=== PATIENT | female | born 1945 | race Caucasian/White ===

== ENCOUNTER 2018-05-05 06:33 | Inpatient (IN) | payer OTHER, MEDICARE ==
[2018-04-30 13:19] LABS: ANION GAP 4 (5-15); CALCIUM 9.7 mg/dL (8.4-11.0); CHLORIDE 102 mmol/L (98-107); GLUCOSE 147 mg/dL (70-99); POTASSIUM 4.5 mmol/L (3.5-5.1); SODIUM SERUM 135 mmol/L (136-145); UREA NITROGEN, BLOOD 13 mg/dL (8-21)
[2018-04-30 13:20] LABS: CREATININE 0.73 mg/dL (0.55-1.30)
[2018-04-30 13:21] LABS: ALANINE AMINOTRANSFERASE 26 U/L (12-78); ASPARTATE AMINOTRANSFERASE 18 U/L (10-37); TOTAL BILIRUBIN 0.3 mg/dL (0.0-1.0)
[2018-04-30 13:22] LABS: ALBUMIN 3.7 g/dL (3.4-4.8)
[2018-04-30 13:28] LABS: PROTHROMBIN TIME 9.9 SECS (9.5-12.5)
[2018-04-30 13:34] LABS: BILIRUBIN,URINE NEGATIVE (NEGATIVE); BLOOD, URINE NEGATIVE (NEGATIVE); CLARITY/URINE HAZY (CLEAR); COLOR,URINE YELLOW (YELLOW); GLUCOSE,URINE TRACE (NEGATIVE); KETONES,URINE NEGATIVE (NEGATIVE); PH,URINE 6.5 (5.0-8.0); PROTEIN URINE NEGATIVE (NEGATIVE)
[2018-04-30 13:35] LABS: LEUKOCYTE ESTERASE ,URINE 1+ (NEGATIVE); NITRITE, URINE POSITIVE (NEGATIVE); UROBILINOGEN,URINE 0.2 (0.2-1.0)
[2018-04-30 13:42] LABS: BACTERIA,URINE MODERATE /HPF (None Seen); RBC,URINE 0-3 /HPF (0-3)
[2018-04-30 13:43] LABS: MUCUS,URINE 1+ /LPF (None Seen)
[2018-04-30 13:48] LABS: BASOPHILS # (AUTO) 0.1 K/uL (0.0-0.2); BASOPHILS % (AUTO) 0.8 % (0.0-2.0); EOSINOPHILS # (AUTO) 0.1 K/uL (0.0-0.4); EOSINOPHILS % (AUTO) 1.4 % (0.0-4.0); HEMATOCRIT 39.8 % (36-48); LYMPHOCYTES # (AUTO) 2.1 K/uL (1.0-5.5); LYMPHOCYTES % (AUTO) 23.9 % (20.5-51.5); MEAN CORPUSCULAR HEMOGLOBIN 28 pg (27-31); MEAN CORPUSCULAR HGB CONC 33 % (32-36); MEAN CORPUSCULAR VOLUME 84 fL (79.0-98.0); MONOCYTES # (AUTO) 0.4 K/uL (0.0-1.0); MONOCYTES % (AUTO) 4.6 % (1.7-9.3); NEUTROPHILS # (AUTO) 6.1 K/uL (1.8-7.7); NEUTROPHILS % (AUTO) 69.3 % (40.0-70.0); PLATELET COUNT (AUTO) 344 K/uL (130-430); RED BLOOD CELL COUNT(AUTO) 4.72 MIL/uL (4.2-6.2); RED CELL DISTRIBUTION WIDTH 12.7 % (9.0-15.0); WHITE BLOOD COUNT (AUTO) 8.8 K/uL (4.8-10.8)
[~2018-05-05] VITALS: Ht 157.5 cm; Wt 92.5 kg
[2018-05-05] MEDS ORDERED: ACETAMINOPHEN 500 MG TABLET ONE (06:52)
[2018-05-05] MEDS ORDERED: GABAPENTIN 300 MG CAPSULE ONE (06:52)
[2018-05-05] MEDS ORDERED: CELECOXIB 200 MG CAPSULE ONE (06:52)
[2018-05-05] MEDS ORDERED: TRANEXAMIC ACID 650 MG TABLET ONE (06:53)
[2018-05-05] MEDS ORDERED: oxyCODONE HCL 10 MG TAB.ER.12H PO ONE ×2 (06:53→07:00)
[2018-05-05] MEDS ORDERED: NACL 0.9% 1,000 ML IV ONE (07:00)
[2018-05-05] MEDS ORDERED: GABAPENTIN 300 MG CAPSULE PO ONE (07:00)
[2018-05-05] MEDS ORDERED: CELECOXIB 200 MG CAPSULE PO ONE (07:00)
[2018-05-05] MEDS ORDERED: ACETAMINOPHEN 500 MG TABLET PO ONE (07:00)
[2018-05-05] MEDS ORDERED: TRANEXAMIC ACID 650 MG TABLET PO ONE (07:00)
[2018-05-05] MEDS ORDERED: CEFAZOLIN 2 GM IVPB PREMIX 50 ML IV ONE (07:00)
[2018-05-05] MEDS ORDERED: POLYMYXIN 500,000/BACIT.10,000 UNITS in NS IRR 1 L IR ONE (07:59)
[2018-05-05] MEDS ORDERED: ROPIVACAINE HCL/PF 0.2% (NAROPIN) 200 ML PLAST..BAG EP ONE (08:11)
[2018-05-05] MEDS ORDERED: LR 1,000 ML IV.SOLN IV ONE (08:11)
[2018-05-05] MEDS ORDERED: PROPOFOL 200MG/ 20ML VIAL (DIPRIVAN) IV ONE (08:11)
[2018-05-05] MEDS ORDERED: TRANEXAMIC ACID 1,000 MG/10 ML VIAL IV ONE (08:11)
[2018-05-05] MEDS ORDERED: MIDAZOLAM HCL 5 MG/5 ML VIAL IVP ONE (08:11)
[2018-05-05] MEDS ORDERED: METH500T PO (08:21)
[2018-05-05] MEDS ORDERED: SITA100T11 PO (08:21)
[2018-05-05] MEDS ORDERED: GLIP5TAB13 PO (08:21)
[2018-05-05] MEDS ORDERED: VALS160T2 PO (08:21)
[2018-05-05] MEDS ORDERED: LEVO137T2 PO (08:21)
[2018-05-05] MEDS ORDERED: LIRA0.6P SQ (08:21)
[2018-05-05] MEDS ORDERED: GLIP10TA11 PO (08:21)
[2018-05-05] MEDS ORDERED: TRAZ-123 PO (08:21)
[2018-05-05] MEDS ORDERED: ROPIVACAINE 0.2% 100 ML INJ SCH (08:42)
[2018-05-05] MEDS ORDERED: KETOROLAC TROMETHAMINE 30 MG VIAL IVP PRN (08:45)
[2018-05-05] MEDS ORDERED: OXYCODONE/ACETAMINOPHEN *10*mg/325 mg TABLET PO PRN (08:45)
[2018-05-05] MEDS ORDERED: DIPHENHYDRAMINE INJ 50 MG/ML VIAL IVP PRN (08:45)
[2018-05-05] MEDS ORDERED: fentaNYL CITRATE/PF 100 MCG/2 ML AMP IVP PRN ×2 (08:45)
[2018-05-05] MEDS ORDERED: ONDANSETRON HCL 4 MG/2 ML VIAL IVP PRN ×3 (08:45→10:30)
[2018-05-05] MEDS ORDERED: NALBUPHINE HCL 10 MG/ML AMP IVP PRN (08:45)
[2018-05-05] MEDS ORDERED: ROPIVACAINE 0.2% 550 ML INJ ONE (10:20)
[2018-05-05] MEDS ORDERED: LR 1,000 ML IV SCH (10:20)
[2018-05-05] MEDS ORDERED: PROMETHAZINE HCL 25 MG/ML AMP IVP PRN (10:30)
[2018-05-05] MEDS ORDERED: SENNOSIDES 8.6 MG TABLET PO PRN (10:30)
[2018-05-05] MEDS ORDERED: KETOROLAC TROMETHAMINE 15 MG VIAL IVP PRN ×2 (10:30)
[2018-05-05] MEDS ORDERED: MORPHINE 4 MG/ML INJ. SYRINGE IVP PRN (10:30)
[2018-05-05] MEDS ORDERED: DIPHENHYDRAMINE HCL 25 MG CAPSULE PO PRN (10:30)
[2018-05-05] MEDS: NACL 0.9% 1,000 ML IV SCH ×2 (11:32→14:34)
[2018-05-05] MEDS ORDERED: KETOROLAC TROMETHAMINE 30 MG VIAL ONE (11:34)
[2018-05-05] MEDS ORDERED: ONDANSETRON HCL 4 MG/2 ML VIAL ONE (12:04)
[2018-05-05 12:14] VITALS: BP_SYST 118
[2018-05-05] MEDS: CEFAZOLIN 1 GM IVPB PREMIX 50 ML IV SCH ×2 (14:33→22:14)
[2018-05-05] MEDS: ACETAMINOPHEN 500 MG TABLET PO SCH ×2 (14:34→20:42)
[2018-05-05] MEDS ORDERED: DEXTROSE 50% JECT 50 ML DISP.SYRIN IVP PRN (16:15)
[2018-05-05] MEDS: RIVAROXABAN 10 MG TABLET PO SCH (16:39)
[2018-05-05] MEDS: INSULIN REGULAR, HUMAN 100 UNITS/ML, 10 ML VIAL (novoLIN R) SUBCUT PRN (16:40)
[2018-05-05 16:50] VITALS: BP_SYST 117
[2018-05-05 20:15] VITALS: BP_SYST 124
[2018-05-05] MEDS: SULFAMETHOXAZOLE/TRIMETHOPR DS 1 TABLET PO SCH (20:41)
[2018-05-05] MEDS: GABAPENTIN 300 MG CAPSULE PO SCH (20:41)
[2018-05-05] MEDS: CELECOXIB 200 MG CAPSULE PO SCH (20:41)
[2018-05-05] MEDS: oxyCODONE HCL 5 MG TABLET PO PRN (22:19)
[2018-05-06] VITALS (7 sets, daily range): BP systolic 123–175
[2018-05-06] MEDS: NACL 0.9% 1,000 ML IV SCH ×5 (01:30→21:51)
[2018-05-06] MEDS: CEFAZOLIN 1 GM IVPB PREMIX 50 ML IV SCH (06:00)
[2018-05-06] MEDS: LEVOTHYROXINE SODIUM 0.137 MG TABLET PO SCH (06:00)
[2018-05-06] MEDS: INSULIN REGULAR, HUMAN 100 UNITS/ML, 10 ML VIAL (novoLIN R) SUBCUT PRN ×3 (06:12→17:42)
[2018-05-06 07:15] LABS: BASOPHILS # (AUTO) 0.1 K/uL (0.0-0.2); BASOPHILS % (AUTO) 0.5 % (0.0-2.0); EOSINOPHILS # (AUTO) 0.1 K/uL (0.0-0.4); EOSINOPHILS % (AUTO) 0.4 % (0.0-4.0); HEMATOCRIT 32.9 % (36-48); HEMOGLOBIN 11.4 g/dL (12.0-16.0); LYMPHOCYTES % (AUTO) 7.2 % (20.5-51.5); MEAN CORPUSCULAR HEMOGLOBIN 29 pg (27-31); MEAN CORPUSCULAR HGB CONC 35 % (32-36); MEAN CORPUSCULAR VOLUME 83 fL (79.0-98.0); MONOCYTES # (AUTO) 0.9 K/uL (0.0-1.0); MONOCYTES % (AUTO) 6.6 % (1.7-9.3); NEUTROPHILS # (AUTO) 11.7 K/uL (1.8-7.7); NEUTROPHILS % (AUTO) 85.3 % (40.0-70.0); PLATELET COUNT (AUTO) 256 K/uL (130-430); RED BLOOD CELL COUNT(AUTO) 3.95 MIL/uL (4.2-6.2); WHITE BLOOD COUNT (AUTO) 13.8 K/uL (4.8-10.8)
[2018-05-06 07:35] LABS: ANION GAP 10 (5-15); CALCIUM 8.6 mg/dL (8.4-11.0); CHLORIDE 102 mmol/L (98-107); CREATININE 0.69 mg/dL (0.55-1.30); GLUCOSE 214 mg/dL (70-99); POTASSIUM 4.5 mmol/L (3.5-5.1); SODIUM SERUM 135 mmol/L (136-145); UREA NITROGEN, BLOOD 11 mg/dL (8-21)
[2018-05-06] MEDS: CELECOXIB 200 MG CAPSULE PO SCH ×2 (08:18→20:50)
[2018-05-06] MEDS: VALSARTAN 160 MG TABLET (DIOVAN) PO SCH (08:18)
[2018-05-06] MEDS: SULFAMETHOXAZOLE/TRIMETHOPR DS 1 TABLET PO SCH ×2 (08:19→20:50)
[2018-05-06] MEDS: ACETAMINOPHEN 500 MG TABLET PO SCH ×3 (08:19→20:50)
[2018-05-06] MEDS: METHOCARBAMOL 500 MG TABLET PO SCH (08:20)
[2018-05-06] MEDS: oxyCODONE HCL 5 MG TABLET PO PRN ×3 (08:21→18:55)
[2018-05-06] MEDS ORDERED: NON-FORMULARY MEDICATION (Liraglutide (Victoza 2-Pak) 1.8 MG) SQ SCH (09:00)
[2018-05-06] MEDS: RIVAROXABAN 10 MG TABLET PO SCH (15:44)
[2018-05-06] MEDS: GABAPENTIN 300 MG CAPSULE PO SCH (20:50)
[2018-05-07] MEDS: INSULIN REGULAR, HUMAN 100 UNITS/ML, 10 ML VIAL (novoLIN R) SUBCUT PRN ×3 (00:08→11:31)
[2018-05-07 04:28] VITALS: BP_SYST 159
[2018-05-07] MEDS: LEVOTHYROXINE SODIUM 0.137 MG TABLET PO SCH (06:19)
[2018-05-07] MEDS: oxyCODONE HCL 5 MG TABLET PO PRN ×3 (06:20→15:04)
[2018-05-07 08:00] VITALS: BP_SYST 128
[2018-05-07 08:37] LABS: EOSINOPHILS # (AUTO) 0.2 K/uL (0.0-0.4); MONOCYTES # (AUTO) 0.9 K/uL (0.0-1.0)
[2018-05-07 08:39] LABS: ANION GAP 9 (5-15); CALCIUM 8.8 mg/dL (8.4-11.0); CHLORIDE 103 mmol/L (98-107); CREATININE 0.58 mg/dL (0.55-1.30); GLUCOSE 209 mg/dL (70-99); POTASSIUM 4.2 mmol/L (3.5-5.1); SODIUM SERUM 136 mmol/L (136-145); UREA NITROGEN, BLOOD 9 mg/dL (8-21)
[2018-05-07] MEDS ORDERED: LIRAGLUTIDE 18 MG/3 ML SUBCUT SCH (09:00)
[2018-05-07] MEDS ORDERED: PRE FILLED SUBCUT SCH (09:00)
[2018-05-07 09:02] LABS: BASOPHILS # (AUTO) 0.1 K/uL (0.0-0.2); BASOPHILS % (AUTO) 0.4 % (0.0-2.0); HEMATOCRIT 32.7 % (36-48); HEMOGLOBIN 11.2 g/dL (12.0-16.0); LYMPHOCYTES # (AUTO) 1.4 K/uL (1.0-5.5); LYMPHOCYTES % (AUTO) 9.4 % (20.5-51.5); MEAN CORPUSCULAR HEMOGLOBIN 29 pg (27-31); MEAN CORPUSCULAR HGB CONC 34 % (32-36); MEAN CORPUSCULAR VOLUME 84 fL (79.0-98.0); MONOCYTES % (AUTO) 5.9 % (1.7-9.3); NEUTROPHILS # (AUTO) 12.6 K/uL (1.8-7.7); NEUTROPHILS % (AUTO) 83.3 % (40.0-70.0); PLATELET COUNT (AUTO) 238 K/uL (130-430); WHITE BLOOD COUNT (AUTO) 15.2 K/uL (4.8-10.8)
[2018-05-07] MEDS: CELECOXIB 200 MG CAPSULE PO SCH (09:11)
[2018-05-07] MEDS: ACETAMINOPHEN 500 MG TABLET PO SCH ×2 (09:11→15:00)
[2018-05-07] MEDS: METHOCARBAMOL 500 MG TABLET PO SCH (09:12)
[2018-05-07] MEDS: SULFAMETHOXAZOLE/TRIMETHOPR DS 1 TABLET PO SCH (09:12)
[2018-05-07] MEDS: VALSARTAN 160 MG TABLET (DIOVAN) PO SCH (09:12)
[2018-05-07 12:54] VITALS: BP_SYST 145
[2018-05-07] MEDS ORDERED: RIVA10TA PO (13:03)
[2018-05-07] MEDS ORDERED: HYDR-551 PO (13:04)
[2018-05-07 13:10] VITALS: BP_SYST 120
== END 2018-05-07 15:15 | disposition home health service (06) | DRG 470 ==
LOC: SMU 06:33 → STU 11:00
PROVIDERS: ADMIT Orthopaedic Surgery; ATTEND Orthopaedic Surgery
PROC: 3E0T3BZ Introduction of Anesthetic Agent into Peripheral Nerves and Plexi, Percutaneous Approach (ICD-10-PCS; 2018-05-05)
PROC: 0SRD0J9 Replacement of Left Knee Joint with Synthetic Substitute, Cemented, Open Approach (ICD-10-PCS; principal; 2018-05-05 08:30)
DX: M17.12 Unilateral primary osteoarthritis, left knee (principal); E11.9 Type 2 diabetes mellitus without complications; I10 Essential (primary) hypertension; Z90.710 Acquired absence of both cervix and uterus; Z88.5 Allergy status to narcotic agent; Z79.4 Long term (current) use of insulin
CPT/HCPCS: 36415; 71046-TC; 80048; 80053; 81000-TC; 82948; 82962; 83036; 85025; 85610-TC; 85730-TC; 87081; 87086; 87186-TC; 88305; 88311; 97039; 97110-GP; 97116-GP; 97530-GP; C1713; C1776; G0378; J0690; J1200; J1815; J1885; J2250; J2270; J2405; J2704; J2795; J3490; J7030; J7120